=== PATIENT | male | born 1980 | race Caucasian/White ===

== ENCOUNTER 2021-07-15 12:56 | Emergency (ER) | payer OTHER, SELFPAY ==
[2021-07-15 13:04] VITALS: BP 161/89; PULSE 72; RESP 17; TEMP 36.8; O2SAT 99; BMI 23.5
--- NOTE | 2021-07-15 14:00 | ECG_ITS ---
[facility] Test Date: 2021-07-15 Pat Name: Everardo Rivera Department: Room: Gender: Male Chemistry Associate: : 1980 Requested By: Alicia Ford Order Number: [id number] Carol MD: Cheryl Ramirez M.D. Measurements Intervals [place] Rate: 67 P: 81 MA: 142 QRS: 73 QRSD: 106 T: 61 QT: 401 QTc: 426 Interpretive Statements SINUS RHYTHM No previous ECG available for comparison Electronically Signed On 07-17-2021 9:06:14 CDT by Cheryl Ramirez M.D. [email or web address]
== END 2021-07-15 14:53 | disposition left against medical advice (07) ==
PROVIDERS: Emergency Provider Family Medicine
DX: Z53.21 Procedure and treatment not carried out due to patient leaving prior to being seen by health care provider (principal)
CPT/HCPCS: 93005